=== PATIENT | female | born 2000 | race Caucasian/White ===

== ENCOUNTER 2020-05-03 10:00 | Outpatient (RCR) | payer BC, SELFPAY ==
--- NOTE | 2020-03-28 12:33 | HP.PTEVAL ---
Patient's Visit Information CHRISTIAN RAMÍREZ is a 19 year old F referred to Physical Therapy by Dr. Favian Gaines MD with a diagnosis of L HS strain. Date of Evaluation: 03/28/20 Physical Therapist: Maldonado Linton DPT - Visit Plan Frequency: 2x /Week Duration: 4-6 Weeks Plan: Start with foam rolling, HS stretching (light, progress as tolerated), US and DFM as needed. Start with AROM functional movements without increase in symptoms progressing to non painful strengthening. (painful being her comparable signs, muscle sorness/fatigue is normal). - Subjective Pt. is here today for her initial evaluation with diagnosis of L HS strain. 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 Pt reports hurting her leg ~6-7 weeks ago. Pt. was kicking her leg over her head adn felt a pop in Hamstring. Pt. denies N/T, no bruising in her leg was noted. Pt. has been icing, and is doing better, but not totally better. Pt. reports no pain with walking, but did try to run and had increased soreness and had to stop. Pt. also reports increased tightness in her HS. Pt. has been stretching, but has been painful. Pt. is hopeful to reduce her symptoms in order to get back to all recreational and work activities without limitations. - Pain L posterior thigh Pain Intensity (Out of 10): 2 Pain Intensity Range: 1, 4 - Objective POSTURE: Pt. has good posture in stance. Pt. has normal wt. shifting, normal iliac crest height. PALPATION: Pt. has increased tenderness at lateral HS and HS origin. Pt. has no knee pain and no pain at distal HS. NEURO: pt. has normal throughout. ROM: PT. has normal knee and hip ROM without increase in symptoms. pt. does have some mild soreness with end range hip flexion. Tightness noted with HS in 90/90 positioning, increased pain at lateral HS and HS origin. MMT: PT. has 5/5 strength of RLE. LLE- ankle 5/5 throughout; knee- ext 5/5, flexion 4/5 increase in symptoms; hip- flexion 4+/5 NE, abd 4+/5 NE, extension 4/5 increase NW, add 4+/5 mild increase nW, ER 4+/5 NE, IR 4+/5 NE. GAIT: Pt. has normal gait pattern, except decreased L step lenght, with increase in symptoms at initial contact of LLE. STAIRS: Pt. has mild increase in symptoms with ascenting on LLE. SQUAT: partial squat no pain, mild increase in symptoms with full squat. - Goals Goal 1:: LTG: Pt. to be I with HEP. Goal Time Frame: 4-6 Weeks Goal 2:: STG: Pt. to ambulate without increase in symptoms. Goal Time Frame: 2-4 Weeks Goal 3:: LTG: Pt. to run without increase in symptoms. Goal Time Frame: 4-6 Weeks Goal 4:: LTG: Pt. to have have increased L HS length to full without increase in symptoms. Goal Time Frame: 4-6 Weeks Goal 5:: LTG: Pt. to complete all tumbling/stunt team activities without increase in symptoms. Goal Time Frame: 4-6 Weeks Goal 6:: LTG: Pt. to have increased in strength of BLE by 1/2 grade of all effected musculature with out increase in symptoms. Goal Time Frame: 4-6 Weeks - Rehabilitation Potential Physical Therapy Diagnosis: Pt. has signs and symptoms consistent with L HS strain. Pt. has subsequent hypombility tightness in her HS, she also has increased pain with muscle testing of her L HS with subsequent pain. Pt. would benefit from PT to reduce symptoms, increased tissue length and increase her strength of her BLEs in preperation to return back to sports. Rehabilitation Potential: Excellent - Anticipated Interventions Patient/Client Instruction: Educate patient on: Condition, Plan of Care, Risk Factors, Benefits of Fitness Program For the Purpose of:: To facilitate caregiver knowledge, To improve self management, To prevent re-injury, To improve ability to perform tasks related to life management, To improve tolerance to ADL's Therapeutic Exercise to Include: Strength training, Power training, Balance training, Coordination, Agility training, Body mechanics, Postural training, Flexibilty training, Passive ROM, Active ROM, Dynamic Lumbar Stabilization For the Purpose of:: To decrease pain, To decrease swelling/inflammation, To increase ROM, To improve nutrient delivery to tissue, To increase oxygenation perfusion, To improve muscle performance and motor function, To improve ability to perform ADL's, To increase tolerance to activity/condition/position, To improve performance and independence with ADL's Manual Therapy Techniques to Include: Mobilization, Functional dry needling, Soft tissue mobilization For the Purpose of:: To decrease pain, To decrease swelling/inflammation, To increase ROM, To improve nutrient delivery to tissue, To increase oxygenation perfusion, To improve muscle performance and motor function, To increase tolerance to activity/condition/position, To improve gait and locomotor functions, To improve health of tissue IF ES: Yes Cryotherapy (ice pack, ice massage): Yes Thermo therapy (hot pack): Yes Ultrasound (thermal/non thermal): Yes For the Purpose of:: To decrease pain, To decrease swelling/inflammation, To increase ROM, To improve nutrient delivery to tissue, To increase oxygenation perfusion, To improve muscle performance and motor function Thank you for the opportunity to evaluate your patient. For Medicare and Medicare HMO plans, please review the plan of care and approve it. It will need to be FAXED BACK to us at [phone] for Medicare purposes. For Medicare only, by signing this I certify the plan of care. Please let me know if there are questions or concerns regarding this plan of care. Physician Signature: Date:
== END 2020-05-03 19:00 | disposition home or self-care (01) ==
LOC: PT 10:00
PROVIDERS: PCP Pediatrics; Referring Provider Pediatrics; Visit Provider Pediatrics
DX: S76.302D Unspecified injury of muscle, fascia and tendon of the posterior muscle group at thigh level, left thigh, subsequent encounter (principal)
CPT/HCPCS: 97110; 97161